=== PATIENT | female | born 1980 | race Caucasian/White ===

== ENCOUNTER 2024-02-13 10:40 | Outpatient (CLI) | payer BC, OTHER ==
--- NOTE | 2024-02-17 08:10 | Mammography Report ---
BILATERAL DIGITAL DIAGNOSTIC MAMMOGRAM 3D/2D WITH SPOT COMPRESSION: 02/13/2024 CLINICAL: Baseline exam. Focal right breast pain. No prior exams were available for comparison. There are scattered areas of fibroglandular density in both breasts (category b / 25%-50% glandular t issue). There is an incidental irregular low density focal asymmetry with an indistinct and circumscribed mar gin in the right breast at 11 o'clock anterior depth. There is no mammographic correlate to the repo rted right breast pain anteriorly at 7:00. No other significant masses, calcifications, or other findings are seen in either breast. IMPRESSION: INCOMPLETE: NEEDS ADDITIONAL IMAGING EVALUATION No mammographic finding to correspond to the right breast pain. Ultrasound is recommended for full ev aluation of this area. This was performed immediately following this exam. The incidental irregular low density focal asymmetry in the right breast is indeterminate. An ultras ound is recommended. This was performed immediately following this exam. Left mammogram is normal. Based on Tyrer-Cuzick model (a risk assessment model), the patient's lifetime risk is 22.5% and her 1 0 year risk is 4.2%. If a patient has an elevated risk, a more comprehensive evaluation should be con sidered and/or a referral to a genetic counselor. The [employer], [employer], and NCCN Guidelines advise the consideration of Breast MRI as an adjunct to screening mammog deshawn in patients whose "Lifetime risk to develop breast cancer" is 20% or higher. This exam was interpreted at Station ID: [id number]. NOTE: For mammograms, a report in lay terms will be sent to the patient. Approximately 15% of breast malignancies will not be visualized mammographically. In the management of a palpable breast mass, a negative mammogram must not discourage biopsy of a clinically suspicious lesion. Electronically Signed By: Joanne arguello/:02/13/2024 12:55:42 ACR BI-RADS Category 0: Incomplete 3340F PARENCHYMAL PATTERN: (A) - The breast(s) demonstrate(s) scattered fibroglandular densities. BI-RADS CATEGORY: (0) - 0 Ultrasound [id number] Immediate follow-up LATERALITY: (B)
--- NOTE | 2024-02-17 08:10 | Ultrasound Report ---
LIMITED ULTRASOUND OF RIGHT BREAST: 02/13/2024 CLINICAL: Intermittent focal pain in right breast. No prior exams were available for comparison. Color flow ultrasound of the right breast 10 o'clock region was performed. [place] scale images of the real-time examination were reviewed. No significant abnormalities were seen sonographically in the right breast. Specifically, no finding to correspond to the patient's mammographic asymmetry or to the site of right breast pain at 7:00. IMPRESSION: PROBABLY BENIGN No sonographic correlate to the mammogram finding of incidental right breast asymmetry at 10:00. A fo llow-up mammogram and possible ultrasound in 6 months is recommended to demonstrate stability. Clinical follow up is recommended for pain symptoms as needed. Findings and recommendations were conveyed to the patient at time of exam. This exam was interpreted at Station ID: [id number]. Electronically Signed By: Joanne arguello/:02/13/2024 12:58:17 Ultrasound BI-RADS: 3 Probably benign BI-RADS CATEGORY: (3) - 3 Mammo and [place] [id number] 6 month follow-up LATERALITY: (R)
== END 2024-02-13 10:41 | disposition home or self-care (01) ==
LOC: DI 10:40
PROVIDERS: ATTEND Emergency Medicine
DX: N64.4 Mastodynia (principal); R92.8 Other abnormal and inconclusive findings on diagnostic imaging of breast